=== PATIENT | female | born 1955 | race African-American/Black ===

== ENCOUNTER 2025-09-29 17:17 | Inpatient (IN) | payer MEDICAID ==
[~2025-09-29] VITALS: Ht 180.3 cm; Wt 128.8 kg
[~2025-09-29 17:17] MED LIST: ALBU18HF2 IH; GABA800T97 MT; INSLIS SUBCUT; INSU100I28 SQ; LISI20TA31 MT; METF-1150 MT; MOME13HF11 INH
[2025-09-29 18:26] LABS: BASOPHILS % 0.8 % (0.0-2.0); EOSINOPHILS % 1.6 % (0.0-5.0); HEMATOCRIT. 37.3 % (36.0-48.0); HEMOGLOBIN. 11.8 g/dL (12.0-16.0); LYMPHOCYTES % 11.1 % (20.0-50.0); MEAN PLATELET VOLUME 10.2 fl (7.4-10.4); MONOCYTES % 5.6 % (2.0-8.0); NEUTROPHILS % 80.9 % (40.0-76.0); PLATELET 226 x1000/uL (130-400); RED BLOOD CELL COUNT 4.00 mill/uL (4.2-5.4); RED CELL DISTRIBUTION WIDTH 16.3 % (11.6-14.6)
[2025-09-29 18:43] LABS: CREATININE 1.3 mg/dL (0.6-1.0); UREA NITROGEN BLOOD 28 mg/dL (9-23)
[2025-09-29 18:44] LABS: PROTEIN TOTAL 6.8 g/dL (6.0-8.3)
[2025-09-29 18:45] LABS: ASPARTATE AMINOTRANSFERASE 13 IU/L (<34); BILIRUBIN DIRECT < 0.1 mg/dL (<=3.0); TROPONIN I HIGH SENSITIVITY 9 ng/L (3.0-34)
[2025-09-29 18:46] LABS: BILIRUBIN TOTAL 0.2 mg/dL (0.1-1.0)
[2025-09-29] MEDS: INSULIN REGULAR (HUMULIN R) 1000UNITS/10ML VIAL IV ONE (20:51)
[2025-09-29] MEDS: POTASSIUM CHLORIDE 20MEQ/PACKET PO ONE (20:52)
[2025-09-29 20:53] LABS: CLARITY URINE CLEAR (CLEAR); GLUCOSE URINE 3+ (NEGATIVE); KETONES URINE NEGATIVE (NEGATIVE); LEUKOCYTE ESTERASE URINE NEGATIVE (NEGATIVE); NITRITE URINE NEGATIVE (NEGATIVE); OCCULT BLOOD URINE NEGATIVE (NEGATIVE); PH URINE 6.5 (4.5-8.0); PROTEIN URINE 1+ (NEGATIVE); SPECIFIC GRAVITY URINE 1.033 (1.005-1.030); UROBILINOGEN URINE 0.2 E.U./dL (0.2-1.0)
[2025-09-29] MEDS: LACTATED RINGERS 1,000 ML IV SCH (21:31)
[2025-09-29 21:44] LABS: COLOR URINE STRAW (YELLOW)
[2025-09-29 21:45] LABS: BACTERIA URINE NONE SEEN; MUCUS URINE TRACE /lpf (< = 2+); RBC URINE NONE SEEN /hpf (0-2); SQUAMOUS EPITHELIAL CELL URINE FEW /lpf (RARE/1+); WBC URINE NONE SEEN /hpf (0-2)
[2025-09-29] MEDS ORDERED: IOHEXOL-300 100 ML BOTTLE ONE (22:34)
[2025-09-29] MEDS ORDERED: DEXTROSE 50% WATER 50ML SYRINGE IV PRN (23:15)
[2025-09-29] MEDS ORDERED: IPRATROPIUM/ALBUTEROL 0.5-3(2.5)MG/3ML NEB HHN PRN (23:15)
[2025-09-29] MEDS ORDERED: ACETAMINOPHEN 325MG TABLET PO PRN (23:15)
[2025-09-29] MEDS ORDERED: DOCUSATE SODIUM 100MG CAPSULE PO PRN (23:15)
[2025-09-29] MEDS ORDERED: ONDANSETRON HCL 4MG/2ML INJ IV PRN (23:15)
[2025-09-29] MEDS ORDERED: CLONIDINE 0.1MG TABLET PO PRN (23:15)
[2025-09-29] MEDS ORDERED: GUAIFENESIN 200MG/10ML SUGAR FREE UDC PO PRN (23:15)
[2025-09-30] VITALS (8 sets, daily range): BP systolic 122–153; BP diastolic 63–84; PULSE 86–94; RESP 18–21; TEMP 36.3–36.9; O2SAT 95–100
[2025-09-30] MEDS: FUROSEMIDE 40MG/4ML VIAL IV SCH (00:55)
[2025-09-30] MEDS: ACETAMINOPHEN 325MG TABLET PO PRN (00:55)
[2025-09-30] MEDS: AZITHROMYCIN 500 MG TABLET PO SCH (00:56)
[2025-09-30] MEDS: AMLODIPINE 5MG TABLET PO SCH (03:53)
[2025-09-30] MEDS: CEFTRIAXONE 1GM/50ML 50 ML IV SCH ×2 (03:54→22:29)
[2025-09-30] MEDS: HYDROCODONE/ACETAMINOPHEN 10/325MG TABLET PO PRN (03:58)
[2025-09-30] MEDS: GABAPENTIN 300MG CAPSULE PO SCH (06:28)
[2025-09-30] MEDS: INSULIN LISPRO 100 UNITS/ML SUBCUT SCH ×3 (07:13→10:30)
[2025-09-30] MEDS: INSULIN GLARGINE 100 UNITS/ML SUBCUT SCH (07:15)
[2025-09-30] MEDS: BLOOD SUGAR DIAGNOSTIC STRIP TEST SCH (07:17)
[2025-09-30 08:06] LABS: SODIUM URINE RANDOM 38.0 mEq/L
[2025-09-30 08:12] LABS: PROTEIN URINE RANDOM 28.0 mg/dL
[2025-09-30 08:13] LABS: CREATININE URINE RANDOM 45.5 mg/dL
[2025-09-30] MEDS: BUDESONIDE 0.5MG/2ML NEB HHN SCH (08:28)
[2025-09-30] MEDS: IPRATROPIUM/ALBUTEROL 0.5-3(2.5)MG/3ML NEB HHN SCH (08:29)
[2025-09-30] MEDS: LOSARTAN 50 MG TABLET PO SCH (08:32)
[2025-09-30] MEDS: ENOXAPARIN 30MG/0.3ML SYR SUBCUT SCH (08:46)
[2025-09-30 09:19] LABS: BASOPHILS % 0.5 % (0.0-2.0); EOSINOPHILS % 2.2 % (0.0-5.0); HEMATOCRIT. 34.7 % (36.0-48.0); HEMOGLOBIN. 11.0 g/dL (12.0-16.0); LYMPHOCYTES % 16.3 % (20.0-50.0); MEAN PLATELET VOLUME 10.5 fl (7.4-10.4); MONOCYTES % 7.8 % (2.0-8.0); NEUTROPHILS % 73.2 % (40.0-76.0); PLATELET 207 x1000/uL (130-400); RED BLOOD CELL COUNT 3.70 mill/uL (4.2-5.4); RED CELL DISTRIBUTION WIDTH 16.0 % (11.6-14.6)
[2025-09-30 09:34] LABS: INR 1.1
[2025-09-30 09:42] LABS: CREATININE 1.1 mg/dL (0.6-1.0)
[2025-09-30 09:43] LABS: LDL CHOLESTEROL 48 mg/dL (5-100); TRIGLYCERIDE 215 mg/dL (0-150); UREA NITROGEN BLOOD 21 mg/dL (9-23)
[2025-09-30 09:45] LABS: PHOSPHORUS 2.7 mg/dL (2.5-4.9)
[2025-09-30 09:46] LABS: T4 FREE 1.37 ng/dL (0.89-1.76)
[2025-09-30 09:48] LABS: FOLIC ACID (FOLATE) SERUM 12.90 ng/mL (>5.38); VITAMIN B12 SERUM 829 pg/mL (211-911)
[2025-09-30] MEDS: INSULIN REGULAR (HUMULIN R) 1000UNITS/10ML VIAL IV NR (11:06)
[2025-09-30] MEDS ORDERED: NALOXONE HCL 0.4MG/ML VIAL IV PRN (11:15)
[2025-09-30] MEDS: INSULIN LISPRO 100 UNITS/ML SUBCUT NR (11:28)
[2025-09-30 18:34] LABS: BG BASE EXCESS 8.1 mmol/L (-2.0-3.0); BG CARBOXYHEMOGLOBIN 1.1 % (0.5-1.5); BG DEOXYHEMOGLOBIN 8.3 % (0.0-5.0); BG FLOW(L/min) 2.00 L/min; BG FRACTION INSPIRED OXYGEN 28; BG HCO3 ACT 35.3 mmol/L (21.0-28.0); BG METHEMOGLOBIN 0.3 % (0.5-1.5); BG OXYGEN SATURATION 91.6 % (94.0-98.0); BG OXYHEMOGLOBIN 90.3 % (94.0-98.0); BG PCO2 61.8 mmHg (32.0-45.0); BG PH 7.375 (7.350-7.450); BG PO2 63.2 mmHg (83.0-108.0); BG SAMPLE SITE RIGHT RADIAL; BG TOTAL HEMOGLOBIN 12.6 g/dL (12.0-16.0); BG VENT MODE NASAL CANNULA
[2025-09-30] MEDS: FAMOTIDINE 20MG TABLET PO SCH (22:27)
[2025-09-30] MEDS: GABAPENTIN 400MG CAPSULE PO SCH (22:38)
[2025-10-01] VITALS (7 sets, daily range): BP systolic 118–133; BP diastolic 61–77; PULSE 83–94; RESP 18–20; TEMP 36.3–36.9; O2SAT 95–100
[2025-10-01 02:41] LABS: TROPONIN I HIGH SENSITIVITY 9 ng/L (3.0-34)
[2025-10-01 06:47] LABS: BASOPHILS % 0.4 % (0.0-2.0); EOSINOPHILS % 2.9 % (0.0-5.0); HEMATOCRIT. 38.0 % (36.0-48.0); HEMOGLOBIN. 12.0 g/dL (12.0-16.0); LYMPHOCYTES % 17.0 % (20.0-50.0); MEAN PLATELET VOLUME 10.5 fl (7.4-10.4); MONOCYTES % 9.6 % (2.0-8.0); NEUTROPHILS % 70.1 % (40.0-76.0); PLATELET 209 x1000/uL (130-400); RED BLOOD CELL COUNT 4.01 mill/uL (4.2-5.4); RED CELL DISTRIBUTION WIDTH 16.0 % (11.6-14.6)
[2025-10-01 07:25] LABS: UREA NITROGEN BLOOD 32 mg/dL (9-23)
[2025-10-01 07:27] LABS: PHOSPHORUS 5.2 mg/dL (2.5-4.9)
[2025-10-01 07:33] LABS: CREATININE 1.5 mg/dL (0.6-1.0)
== END 2025-10-01 16:25 | disposition home or self-care (01) | DRG 871 ==
LOC: ER 17:17 → 8EST 21:25 → EDBEDREQTM 21:27 → EDBEDREQ 21:27 → 6EST 23:20 → 7WST 09-30 00:29
PROVIDERS: ADMIT Internal Medicine; ATTEND Internal Medicine
PROC: 5A09357 Assistance with Respiratory Ventilation, Less than 24 Consecutive Hours, Continuous Positive Airway Pressure (ICD-10-PCS; principal; 2025-09-30)
DX: A41.9 Sepsis, unspecified organism (principal); I50.33 Acute on chronic diastolic (congestive) heart failure; I13.0 Hypertensive heart and chronic kidney disease with heart failure and stage 1 through stage 4 chronic kidney disease, or unspecified chronic kidney disease; G95.29 Other cord compression; J96.10 Chronic respiratory failure, unspecified whether with hypoxia or hypercapnia; Z99.81 Dependence on supplemental oxygen; N17.9 Acute kidney failure, unspecified; I16.0 Hypertensive urgency; E11.22 Type 2 diabetes mellitus with diabetic chronic kidney disease; D64.9 Anemia, unspecified; F11.20 Opioid dependence, uncomplicated; J44.9 Chronic obstructive pulmonary disease, unspecified; Z68.31 Body mass index [BMI] 31.0-31.9, adult; N18.9 Chronic kidney disease, unspecified; M47.816 Spondylosis without myelopathy or radiculopathy, lumbar region; E11.40 Type 2 diabetes mellitus with diabetic neuropathy, unspecified; E11.65 Type 2 diabetes mellitus with hyperglycemia; E66.9 Obesity, unspecified; G47.33 Obstructive sleep apnea (adult) (pediatric); M48.061 Spinal stenosis, lumbar region without neurogenic claudication; Z96.641 Presence of right artificial hip joint; G89.29 Other chronic pain; M54.9 Dorsalgia, unspecified; E78.00 Pure hypercholesterolemia, unspecified; Z79.4 Long term (current) use of insulin; Z79.51 Long term (current) use of inhaled steroids; Z79.899 Other long term (current) drug therapy
CPT/HCPCS: 36415; 36600; 71045; 72148; 74177; 80048; 80061; 80076; 81003; 82010; 82040; 82375; 82570; 82607; 82728; 82746; 82805; 82962; 83036; 83540; 83550; 83735; 83880; 84100; 84156; 84300; 84439; 84443; 84484; 85025; 85044; 85379; 86850; 86900; 93005; 94070; 94640; 94660; 94664; 96365; 96375; 98960; 99285; A4606; J0696; J1650; J1815; J1938; J7626; Q9967